=== PATIENT | female | born 1950 | race Caucasian/White ===

== ENCOUNTER 2017-02-12 15:45 | Emergency (ER) | payer MEDICARE, OTHER ==
[2017-02-12 14:52] LABS: URINE SOURCE CLEAN CATCH
[2017-02-12 14:59] LABS: URINE APPEARANCE SL HAZY; URINE BLOOD 1+ (NEG); URINE COLOR YELLOW; URINE GLUCOSE NORM (NORM); URINE KETONE NEG (NEG); URINE LEUKOCYTE ESTERASE NEG (NEG); URINE NITRATE NEG (NEG); URINE PROTEIN 1+ (NEG); URINE UROBILINOGEN NORM (NORM)
[2017-02-12 15:02] LABS: URINE BILIRUBIN NEG (NEG)
[2017-02-12 15:06] LABS: CULTURE INDICATED? YES; URINE BACTERIA AUWI 1+ (NEGATIVE); URINE SQUAMOUS EPITHELIAL CELL OCCAS /[HPF]
[2017-02-12 15:28] LABS: BASOPHIL% 0.9 % (0-2.5); EOSINOPHIL% 0.3 % (0.0-7.0); HEMATOCRIT 37.7 % (35.0-45.0); HEMOGLOBIN 12.1 gm/dL (12.0-16.0); LYMPHOCYTE# 0.6 X10e3 (1.0-3.5); LYMPHOCYTE% 12.1 % (17.0-45.0); MEAN CELL VOLUME 83.4 FL (83-96); MEAN CORPUSCULAR HEMOGLOBIN 26.8 PG (28-34); MEAN CORPUSCULAR HGB CONC 32.2 g/dL (30-36); MEAN PLATELET VOLUME 9.2 FL (6.5-11.5); MONOCYTE# 0.4 X10e3 (0-1.0); MONOCYTE% 9.5 % (3.0-12.0); NEUTROPHIL# 3.5 X10e3 (1.5-7.1); NEUTROPHIL% 77.2 % (40-75); RED BLOOD COUNT 4.52 X10e (3.90-5.30); RED CELL DISTRIBUTION WIDTH 19.8 % (11.0-15.5); WHITE BLOOD COUNT 4.6 X10e3 (4.0-10.5)
[2017-02-12 15:35] LABS: DIFF IND YES; PLATELET COUNT 45 X10e3 (140-420)
[2017-02-12 15:39] LABS: PLATELET ESTIMATE DECREASED (NORMAL); RBC NORMAL YES
[2017-02-12 15:43] LABS: ALBUMIN SERUM 3.6 g/dL (3.5-5.0); BILIRUBIN, DIRECT 0.3 mg/dL (0.0-0.2); BILIRUBIN,INDIRECT 1.1 mg/dL (0.0-0.9); BILIRUBIN,TOTAL 1.4 mg/dL (0.2-2.0); BUN/CREATININE RATIO 11.81; CALCIUM SERUM 8.9 mg/dL (8.4-10.2); CREATININE SERUM 1.1 mg/dL (0.6-1.4); GLOM FILT RATE Estimated 52.3 mL/min (>60); POTASSIUM 3.9 mmol/L (3.5-5.1); PROTEIN TOTAL SERUM 7.1 g/dL (6.0-8.3)
[~2017-02-12 15:45] MED LIST: ALB/IPRATROPIUM/1 E1 INH; ALDACTONE100 MG PO; AMITRYPTYLINE PO; BENTYL20 MG PO; CIPRO PO; CITRATE OF MAG300 ML PO; COMBIVENT U/D3 M2 INH; DICYCLOMINE HCL20 MG PO; DULCOLAX10 MG/SUPP RC; FLAGYL250 M1 PO; FLEXERIL PO; FLOMAX0.4 M1 PO; FUROSEMIDE40 MG PO; GABAPENTIN300 MG PO; HARVONI PO; HEMOCYTE324 MG PO; KLONOPIN1 M1 PO; KLONOPIN1 MG PO; KLONOPIN2 MG PO; LASIX PO; LORTAB 5/500 TA1 TA1 PO; MIRALAX17 G1 PO; NEURONTIN100 MG PO; NEURONTIN300 MG PO; OPANA10 MG PO; OXYCODONE HCL10 MG PO; PAXIL; PERCOCET 10/3251 TAB PO; PERCOCET 5-3251 TAB PO; PERCOCET 7.5-31 EACH PO; PERCOCET10 PO; PHENERGAN25 MG PO; PROTONIX PO; PROTONIX20 MG PO; SPIRONOLACTONE100 MG PO; SPIRONOLACTONE50 MG PO; ZOFRAN PO
== END 2017-02-12 17:04 | disposition home or self-care (01) ==
LOC: CED 15:45
DX: R11.2 Nausea with vomiting, unspecified (principal); R19.7 Diarrhea, unspecified; Z86.19 Personal history of other infectious and parasitic diseases; Z90.710 Acquired absence of both cervix and uterus; Z98.51 Tubal ligation status; F17.210 Nicotine dependence, cigarettes, uncomplicated; Z79.899 Other long term (current) drug therapy
CPT/HCPCS: 36415; 80048; 80076; 81003; 83690; 85025; 87086; 87088; 87186; 96374; 96375; 99284; C9113; J2405

== ENCOUNTER 2017-03-21 22:52 | Inpatient (IN) | payer MEDICARE, OTHER ==
--- NOTE | ~2017-03-21 | CO ---
Unit #: [id number] #: [id number] Patient: KING MURPHY [id number] [address] [place], [place] [address] [id number] I MR#: [id number] NAME: KING MURPHY ROOM: 302 Age: 67 Sex: F Admission Date: 03/22/2017 : 1950 Attending Physician: Maciej Denis M.D. Primary Care Physician: Christian Reina M.D. CONSULTATION REPORT CHIEF COMPLAINT Alcohol abuse, hepatitis C, cirrhosis of the liver, pancytopenia, hepatic encephalopathy, confusion unknown if due to high level of ammonia came with upper GI bleed. HISTORY OF PRESENT ILLNESS This is a 67-year-old female who in the past had a low platelet count. She had extensive workup. Finally, patient was diagnosed cirrhosis of the liver because she presented with ascites. She also has hepatitis C. Now she has on and off hepatic encephalopathy. Taking lactulose. Recently she received Sovaldi for hepatitis C. She follows with Dr. Gomez. Recently she was confused, admitted, found to have a high ammonia level and received lactulose and all improved. INTERIM HISTORY She has some family issue. She became upset. Started drinking beer heavily. Patient came with nausea, vomiting, mild upper GI bleed. Patient has an EGD that is normal. Her CBC on admission showed WBC 3.8, hemoglobin 8.4, MCV 83, and platelets of 44. Her transferrin situation is 6%. B12 normal. At present, she is comfortable. Worried about ascites. REVIEW OF SYSTEMS CONSTITUTIONAL: No fever, no chills, no sweats, no weight loss. EYES: No visual symptoms. EARS, NOSE AND THROAT: There is no runny nose or sore throat or difficulty hearing. CARDIOVASCULAR: No chest pain. No shortness of breath. No palpitations. No orthopnea. No PND. RESPIRATORY: No cough. No wheezing. No hemoptysis. GASTROINTESTINAL: As mentioned above. GENITOURINARY: No urinary frequency, hesitancy or urgency. No blood in the urine. MUSCULOSKELETAL: No muscle or joint pain. NEUROLOGIC: No headache. No numbness or tingling. No weakness. No seizure. PSYCHIATRIC: No anxiety, depression or mood disturbance. ENDOCRINE: No excessive urination or thirst. DERMATOLOGIC: No rash or change in the skin. ALLERGIC/IMMUNOLOGIC: No symptoms. HEMATOLOGIC/LYMPHATIC: Denies any symptoms. Unit #: [id number] #: [id number] Patient: KING MURPHY PAST MEDICAL HISTORY 1. Alcohol abuse. 2. Hepatitis C. 3. Cirrhosis of the liver. 4. Received Sovaldi for hepatitis C. 5. Leukopenia. 6. Thrombocytopenia. 7. Anemia. PAST SURGICAL HISTORY None. CURRENT MEDICATIONS Include: 1. Lactulose. 2. Folic acid. 3. Ferrous gluconate. 4. Aldactone. 5. Rocephin. ALLERGIES None. SOCIAL HISTORY The patient has been smoking one pack per day for 40 years. She used to drink heavily, quit. FAMILY HISTORY Positive for hypertension. PHYSICAL EXAMINATION GENERAL: Patient is comfortable. ECOG is 0. The patient is pleasant. VITAL SIGNS: Afebrile, O2 saturation 2 liters 93%, pulse 91, respiratory rate 18, blood pressure 105/65. HEENT: Moist mucosa. Pupils equally reactive to light. Extraocular muscles intact. Sclerae anicteric. No obvious bleeding from nasal mucosa or oral mucosa. Scalp normal. Hearing normal. NECK: No JVD. No lymphadenopathy. LYMPHATIC/HEMATOLOGIC: There is no palpable adenopathy in the neck, axilla or inguinal area. CARDIOVASCULAR: S1, S2. Regular rate and rhythm. No S3 or S4. RESPIRATORY: Chest symmetrical, normal. Clear to auscultation bilaterally. No wheezes, no rales, no rhonchi. No dullness to percussion. ABDOMEN/GASTROINTESTINAL: Abdomen is soft, nontender, nondistended. No hepatosplenomegaly. EXTREMITIES: There is no clubbing, no cyanosis, no edema. No varicose veins. NEUROLOGICAL: Patient is alert, awake and oriented x3. Cranial nerves II-XII are intact. Sensory grossly intact. Motor is 4/5 in all four extremities. Gait is normal. Station is normal. Language is normal. Memory is normal. DTRs +2 in all four extremities. MUSCULOSKELETAL: No joint swelling. No bony tenderness. No muscle tenderness. SKIN: No petechiae, no rash, no ecchymosis. PSYCHIATRIC: No anxiety. No delusions or hallucinations. There is no agitation. Eye contact is normal. Affect is appropriate. There is no flight of ideas. Unit #: [id number] #: [id number] Patient: KING MURPHY DIAGNOSTIC STUDIES LABORATORY: As mentioned above. IMAGING: CT abdomen and pelvis, on 03/22/2017, shows cirrhosis and splenomegaly; right pleural effusion; ascites. ASSESSMENT AND PLAN This is a 67-year-old female with the following active issues: 1. Pancytopenia. Her leukopenia and her thrombocytopenia are due to sequestration of WBC and platelets in the liver . She has advanced cirrhosis of the liver. 2. Anemia. Due to GI bleed. I will give her intravenous and folic acid. 3. Hepatic encephalopathy. Recently, she was confused, wandering on the street. I saw her in the clinic. I gave her a prescription for lactulose 30 mL p.o. q.8 h. p.r.n. she is taking. 4. Alcohol abuse. The patient has a significant history of alcohol. She drinks a lot of beer. She became symptomatic and came to the hospital. Encouraged her to quit drinking. I will follow the patient in the clinic. Dictated by... Anselmo Car M.D. HAYDEE/nicholas TD: 03/24/2017 16:40 JOB #: [id number] CONSULTATION REPORT Page 1 of 1 X Anselmo Car MD CONSULTATION REPORT
--- NOTE | ~2017-03-21 | HP ---
Unit #: [id number] #: [id number] Patient: KING MURPHY [id number] [address] [place], [place] [address] [id number] I MR#: [id number] NAME: KING MURPHY ROOM: 302 Age: 67 Sex: F Admission Date: 03/22/2017 : 1950 Attending Physician: Maciej Denis M.D. Primary Care Physician: Christian Reina M.D. HISTORY AND PHYSICAL CHIEF COMPLAINT 1. Nausea, vomiting and some hematemesis. 2. Urinary frequency. HISTORY OF PRESENT ILLNESS 67-year-old female with a history of hepatitis C and alcohol cirrhosis who recently had a binge episode of alcohol and resultant hematemesis. She was hemodynamically stable. She was seen by GI today. She has had a scope and EGD showed esophageal varices but no active bleeding. REVIEW OF SYSTEMS No chest pain, headaches, (1) or difficulty breathing. No constipation or diarrhea at this time. PAST MEDICAL HISTORY 1. Hepatitis C. 2. Alcohol abuse. 3. Cirrhosis. 4. Chronic back pain. 5. Anxiety/depression. 6. Chronic anemia. 7. Chronic thrombocytopenia. PAST SURGICAL HISTORY 1. Hysterectomy. 2. Hand surgery. 3. Tubal ligation. 4. . 5. EGD and colonoscopy. Most recent EGD was done today, 03/22/17, which showed esophageal varices. SOCIAL HISTORY She smokes. She used to drink alcohol heavily, recently restarted. CODE STATUS Full code. FAMILY HISTORY Myocardial infarction in her dad in his 50s. ALLERGIES No known drug allergies. Unit #: [id number] #: [id number] Patient: KING MURPHY HOME MEDICATIONS Include: 1. Oxycodone 10 mg every six hours. 2. Spironolactone 10 mg every morning. 3. Amitriptyline 10 mg at bedtime. 4. Klonopin 1 mg p.o. t.i.d. 5. Lasix 40 mg in the morning. 6. Iron/ferrous sulfate 324 mg p.o. daily. REVIEW OF SYSTEMS Complete ten point review of systems has been done and pertinent positives noted above. PHYSICAL EXAMINATION GENERAL APPEARANCE: She was comfortable, not in distress. VITAL SIGNS: Blood pressure 129/72, pulse 88, respiratory rate 16, temperature 98.6. HEENT: Pupils were equal, round, reactive to light and accommodation. CHEST: Mostly clear. ABDOMEN: Full, moved with respiration. Soft, nontender. EXTREMITIES: No edema. SKIN: Warm and dry with no rashes. LYMPHATIC SYSTEM: No enlarged peripheral lymphadenopathy that I could appreciate. DIAGNOSTIC STUDIES LABORATORY: She had a urinalysis which showed positive nitrites, 1+ leukocyte esterase, positive bowel, 10-25 WBCs. She had a CBC - WBC 15.2, hemoglobin and hematocrit 10.3 and 31.6. She had chemistries - glucose of 123, BUN and creatinine 20 and 1.0, sodium and potassium 135 and 3.6. Bilirubin total was 2.4 and elevated. ASSESSMENT AND PLAN 1. Urinary tract infection: Culture is pending. Would start patient on Rocephin 1 g IV daily if not started already and I will await urine culture. 2. Upper gastrointestinal bleed/hematemesis, probably secondary to esophageal varices: No active bleed at this time. She is stable for discharge per GI standpoint. Will just keep her on that and repeat a CBC and BMP in the morning. 3. Vomiting: This is resolved. At this time, will put her on some Zofran should this be the case. 4. Chronic pain: Will continue pain medication. DISPOSITION Will discharge patient in the morning. Dictated by Cristina Murphy/sebastian TD: 03/22/2017 12:00 Unit #: [id number] #: [id number] Patient: KING MURPHY JOB #: [id number] HISTORY AND PHYSICAL Page 1 of 1 X Maciej Denis MD HISTORY AND PHYSICAL
--- NOTE | ~2017-03-21 | OR ---
Unit #: [id number] #: [id number] Patient: KING MURPHY [id number] [id number] [facility]. [place], [place] [address] [id number] I MR#: [id number] NAME: KING MURPHY ROOM: 302 Date of Procedure: 03/22/2017 Admission Date: 03/22/2017 Surgeon: Magan Marx M.D. : 1950 Attending Physician: Maciej Denis M.D. Primary Care Physician: Christian Reina M.D. OPERATIVE REPORT PRIMARY CARE PHYSICIAN Christian Reina M.D. PREOPERATIVE DIAGNOSES Cirrhosis from hepatitis C and alcohol. The patient has come for upper gastrointestinal bleed with hematemesis. PROCEDURE PERFORMED Upper gastrointestinal endoscopy. POSTOPERATIVE DIAGNOSES 1. Early straight distal esophageal varices without any stigmata of recent bleed. 2. Portal hypertensive gastropathy of moderate severity. 3. Rest of the examination up to third part of duodenum was normal. No active bleeding nor any blood or blood residue was seen in the upper gastrointestinal tract. RECOMMENDATIONS 1. Start on regular diet. 2. The patient can be discharged home from GI standpoint. Also, can discontinue IV Protonix. SEDATION USED MAC. DESCRIPTION OF PROCEDURE Following detailed explanation of the potential risks and complications of an upper endoscopy, namely perforation, bleeding, and complications related to sedation, the patient was brought to GI lab and laid in the left lateral decubitus position. Lubricated tip of the Olympus video upper endoscope was passed through the bite block into the proximal esophagus. The upper GI scope was passed in the proximal esophagus. The entire esophageal mucosa was examined and the patient was noted to have early distal esophageal varices without any stigmata of recent bleed. The scope was then advanced into the gastric cavity and the latter was insufflated. Mucosa of the fundus, body, and antrum was examined and changes of portal hypertensive gastropathy were noted. Pylorus was intubated with visualization of the normal duodenal bulb and second and third part of the duodenum. Upon withdrawal and retroflexion, incisura, cardia, and greater curve was examined and no additional findings were noted. The scope was then withdrawn in the distal esophagus. The entire Unit #: [id number] #: [id number] Patient: MURPHY,KING esophageal mucosa was examined all the way up to pharynx. No additional findings were noted. The patient tolerated the procedure without any postprocedure complications. Dictated by... Cristina Ambrose/catherine TD: 03/22/2017 22:29 JOB #: [id number] Andrez Burch M.D. OPERATIVE REPORT Page 1 of 1 X Magan Marx MD X PROCEDURE OPERATIVE NOTE
--- NOTE | ~2017-03-21 | DS ---
Unit #: [id number] #: [id number] Patient: KING MURPHY [id number] [id number] [facility]. [place], [place] [address] [id number] I MR#: [id number] NAME: KING MURPHY ROOM: 302 Age: 67 Sex: F Admission Date: 03/22/2017 : 1950 Discharge Date: 03/24/2017 Attending Physician: Maciej Denis M.D. Primary Care Physician: Christian Reina M.D. DISCHARGE SUMMARY CONSULTANTS 1. Anselmo Car M.D. 2. Magan Marx M.D. PROCEDURE EGD. ADMITTING DIAGNOSES 1. Nausea. 2. Vomiting. 3. Hematemesis. FURTHER DIAGNOSES 1. Possible upper gastrointestinal bleed. 2. History of hepatitis C. 3. History of cirrhosis, secondary to alcohol/hepatitis C. 4. Urinary tract infection and sepsis with Escherichia coli. HISTORY OF PRESENTING ILLNESS The patient is a 67-year-old lady with a past medical history of hepatitis C, history of cirrhosis, history of alcoholism who had a binge of alcohol. Presented to the emergency room with hematemesis on March 22, 2017. HOSPITAL COURSE In the hospital course, she was seen by Dr. Marx and Dr. Car. She had an EGD done. The EGD showed early straight distal esophageal varices without any stigmata of recent bleed. Portal hypertensive gastropathy of moderate severity and the rest of the examination up to the third part of the duodenum was normal. We counseled her to quit drinking alcohol. She is doing clinically better. She did receive IV infusion today. Will discharge her. She wants to go home. Will discharge her home. Will request her to follow with her primary care in one to two weeks. PHYSICAL EXAMINATION On the day of the discharge, her physical examination: VITAL SIGNS: Temperature 98.4, pulse rate 86, respirations 18, blood pressure 105/57. GENERAL: Patient is alert, oriented x3, lying in the bed. No acute distress. HEENT: Normocephalic and atraumatic. No icterus. PERRLA. Extraocular muscles intact. NECK: Supple. No JVD. HEART: S1, S2. Regular rate and rhythm. Unit #: [id number] #: [id number] Patient: KING MURPHY CHEST: Bilaterally equal air entry. Clear to auscultation. ABDOMEN: Soft, nontender. EXTREMITIES: no edema. Normal pulses. DISCHARGE INSTRUCTIONS 1. Try to stay away from alcohol. 2. Follow with her primary care in one to two weeks. DISCHARGE MEDICATIONS 1. Amitriptyline 10 mg at bedtime. 2. Klonopin 1 mg p.o. three times a day. 3. Folic acid 1 mg p.o. daily. Kindly note, folic acid is sold over the counter. 4. Ferrous gluconate 324 mg p.o. daily. 5. Oxycodone 10 mg p.o. q.6 p.r.n. 6. She mentions she does have pain medications at home. We are not giving any narcotic prescriptions. 7. Aldactone 100 mg in the morning. 8. Protonix 40 mg p.o. twice a day. 9. Omnicef 300 mg p.o. twice a day for five days. All the discharge instructions were explained in detail to the patient. Total time spent in her care, 35 minutes. Dictated by... Hao Almendarez M.D. Jostin TD: 03/24/2017 17:11 JOB #: [id number] DISCHARGE SUMMARY Page 1 of 1 X X DISCHARGE SUMMARY
--- NOTE | ~2017-03-21 | CO ---
Unit #: [id number] #: [id number] Patient: KING MURPHY [id number] [facility]. [place], [place] [address] [id number] I MR#: [id number] NAME: KING MURPHY ROOM: 302 Age: 67 Sex: F Admission Date: 03/22/2017 : 1950 Attending Physician: Maciej Denis M.D. Primary Care Physician: Christian Reina M.D. Consultation Date: 03/22/2017 CONSULTATION REPORT PRIMARY CARE PHYSICIAN Christian Reina M.D. REASON FOR CONSULTATION Upper GI bleed. HISTORY OF PRESENT ILLNESS Ms. Murphy is a 67-year-old white female lives at home by herself. She apparently had a row with her daughter and said she started binge drinking. Subsequently, she vomited and had wes hematemesis. She said she had substantial amount of blood when she vomited. She has a past medical history of hepatitis C and alcohol related cirrhosis with portal hypertension, but has no documented esophageal varices. In fact, she has been seen with similar symptoms in the past. PAST MEDICAL HISTORY Significant for history of alcohol abuse. She has been sober for years, but then started binge drinking. Also, history of hepatitis C related cirrhosis, history of chronic back pain, anxiety, depression, anemia, thrombocytopenia, ITP, chronic back pain, on opiates. PAST SURGICAL HISTORY Included hysterectomy, tubal ligation, hand surgery, section. SOCIAL HISTORY The patient does smoke a pack, used to be a heavy smoker until recently and does drink alcohol. Lives with her son. FAMILY HISTORY Significant for premature NH in father at age 50. ALLERGIES No known drug allergies. MEDICATIONS At home included the following; oxycodone, spironolactone, amitriptyline, Klonopin, Lasix, Hemocyte. REVIEW OF SYSTEMS Detailed review of organ systems does not reveal any recent fever, chills, or rigors. No history of headache, seizures, chest pain, or syncope. No history of cough, expectoration, or hemoptysis. No history of melena. The patient does mention history of hematemesis. No history of dysuria, hematuria, or pyuria. No history of focal seizures or extremity weakness. Unit #: [id number] #: [id number] Patient: KING MURPHY No history of skin rash, aphthous ulcer in mouth, or reactive arthritis. PHYSICAL EXAMINATION GENERAL: She is alert and oriented, and appears comfortable. VITAL SIGNS: Stable with a temperature of 98.5, pulse is 100 per minute and regular, respiratory rate is 16, blood pressure is 129/69. She weighs 102 pounds. Baseline weight is about 120 pounds in the past. HEENT: She has no pallor, icterus, lymphadenopathy, or peripheral edema. CARDIOVASCULAR: Normal heart sounds. No murmurs on auscultation. LUNGS: Reveals normal breath sounds. Good air entry. ABDOMEN: Soft with mild distention. The patient may have mild ascites. Liver and spleen are not palpable. Bowel sounds normal. DIAGNOSTIC STUDIES LABORATORY RESULTS: Shows a hemoglobin of 12.1. Normal BUN and creatinine. INR of 1.5. Her total bilirubin is 2.4, most of which is direct. AST, ALT, and alkaline phosphatase are normal. The platelet count is 100 and white count is 15,000. The patient's urinalysis suggests urinary tract infection. CLINICAL IMPRESSION The patient with a history of upper gastrointestinal bleed, history of hepatitis C, and alcohol related cirrhosis. Hemodynamically stable. She also has urinary tract infection and will be started on Rocephin by Dr. Burch. MANAGEMENT PLAN We will proceed with an upper GI endoscopy as substantial upper gastrointestinal bleed is most likely etiology of presentation indeed Bonita-Cannon tear. The pros and cons of procedure and potential risks and complications were discussed with the patient and she was reassured. Thank you for asking me to see this pleasant patient. I appreciate the consult. Dictated by... Cristina Ambrose/catherine TD: 03/22/2017 22:17 JOB #: [id number] CC: Cristina Granados M.D. CONSULTATION REPORT Page 1 of 1 X Magan Marx MD X CONSULTATION REPORT
--- NOTE | ~2017-03-21 | CT4 ---
[facility] A Service of [facility] RADIOLOGY TEXT RESULTS PATIENT: KING MURPHY LOCATION: C3A 302-01 : [birth year] UNIT #: [id number] AGE: [address]: Maciej Denis MD SEX: F ORDER DR: [id number] [facility] [address] [place], [place] [address] [id number] I MR#: [id number] Acc #: [id number] NAME: KING MURPHY : 1950 SEX: F STUDY DATE/TIME: 03/22/2017 01:49 UNIT: C3A PCU ROOM: 302 STUDY DESCRIPTION: CT Abd and Pelv Wo Cont Attending Physician: Maciej Denis M.D. Ordering Physician: Igor Uribe D.O. Primary Care Physician: Christian Reina M.D. MEDICAL IMAGING REPORT This report is preliminary unless electronic signature is present EXAM Abdomen and pelvis CT 03/22/2017 01:49 INDICATION Nausea, vomiting, diarrhea and left side abdominal pain that started yesterday. History of cirrhosis. TECHNIQUE Axial images were obtained through the abdomen and pelvis without contrast. Multiplanar reformats were obtained. Comparison made 11/29/2016. This CT examination was performed with one or more of the following radiation dose reduction techniques: automatic exposure control, adjustment of mA and/or kV according to patient size, and iterative reconstruction. FINDINGS ABDOMEN: There is a new large right pleural effusion. There is compressive atelectasis in the right lung base. Left lung base is clear. Markedly cirrhotic liver is seen. The liver is shrunken since the previous study. Spleen remains enlarged with a craniocaudal ulbt-vm-rvnq length of 15 cm. No renal or ureteral stones are seen. There is no hydronephrosis. Hoziu-fe-vbmcflka volume of ascites is present. GI tract evaluation is limited without oral contrast. No bowel obstruction is seen. PELVIS: Small volume of ascites is noted. Urinary bladder is decompressed. Uterus is surgically absent. There are no lower ureteral stones. There may be some mild wall thickening in the cecum. This may simply be secondary to the patient's liver disease but could also reflect mild colitis. IMPRESSION 1. Cirrhosis and splenomegaly. The liver appears shrunken and may have shrunken somewhat since the prior study this year. [facility] A Service of [facility] RADIOLOGY TEXT RESULTS PATIENT: KING MURPHY LOCATION: [facility] 302- : 50 UNIT #: [id number] AGE: [address]: Maciej Denis MD SEX: F ORDER DR: 2. No renal or ureteral stones. No hydronephrosis. 3. New large right pleural effusion. 4. Increased volume of ascites in the abdomen and pelvis, now moderate. 5. No bowel obstruction is seen. There may be some wall thickening in the cecum. This may reflect true colitis but may also simply be secondary to the patient's liver disease. 6. Hysterectomy. Dictated by... Armando Booker Jr., M.D. THIS IS AN ELECTRONICALLY VERIFIED REPORT Armando Booker Jr., M.D. at 03/22/2017 9:13 PM RUBIA/hermelinda TD: 03/22/2017 10:22 JOB #: [id number] MEDICAL IMAGING REPORT Page 1 of 1 COPY
[2017-03-22 00:48] LABS: POC - CKMB <1.0 ng/mL (0.0-7.9); POC - TROPONIN <0.05 ng/mL (<=0.05)
[2017-03-22 00:52] LABS: URINE SOURCE CLEAN CATCH
[2017-03-22 00:54] LABS: BASOPHIL# 0.1 X10e3 (0-0.3); BASOPHIL% 0.4 % (0-2.5); EOSINOPHIL% 0.2 % (0.0-7.0); HEMATOCRIT 37.1 % (35.0-45.0); HEMOGLOBIN 12.1 gm/dL (12.0-16.0); LYMPHOCYTE# 0.9 X10e3 (1.0-3.5); LYMPHOCYTE% 5.9 % (17.0-45.0); MEAN CELL VOLUME 82.1 FL (83-96); MEAN CORPUSCULAR HEMOGLOBIN 26.8 PG (28-34); MEAN CORPUSCULAR HGB CONC 32.6 g/dL (30-36); MEAN PLATELET VOLUME 9.2 FL (6.5-11.5); MONOCYTE# 1.5 X10e3 (0-1.0); MONOCYTE% 9.7 % (3.0-12.0); NEUTROPHIL# 12.8 X10e3 (1.5-7.1); NEUTROPHIL% 83.8 % (40-75); PLATELET COUNT 100 X10e3 (140-420); RED BLOOD COUNT 4.52 X10e (3.90-5.30); RED CELL DISTRIBUTION WIDTH 19.7 % (11.0-15.5); WHITE BLOOD COUNT 15.2 X10e3 (4.0-10.5)
[2017-03-22 00:56] LABS: URINE APPEARANCE CLOUDY; URINE BLOOD 3+ (NEG); URINE COLOR ORANGE; URINE GLUCOSE NEG (NEG); URINE KETONE TRACE (NEG); URINE LEUKOCYTE ESTERASE 1+ (NEG); URINE NITRATE POS (NEG); URINE PROTEIN 1+ (NEG); URINE SPECIFIC GRAVITY 1.031 (1.003-1.035)
[2017-03-22 00:56] LABS: DIFF IND YES
[2017-03-22 00:58] LABS: CULTURE INDICATED? YES; URINE BACTERIA AUWI 1+ (NEGATIVE); URINE SQUAMOUS EPITHELIAL CELL MOD /[HPF]
[2017-03-22 01:00] LABS: INR 1.5; PARTIAL THROMBOPLASTIN TIME 27.6 SECONDS (23.5-31.3)
[2017-03-22 01:03] LABS: URINE BILIRUBIN POS (NEG)
[2017-03-22 01:08] LABS: PLATELET ESTIMATE DECREASED (NORMAL)
[2017-03-22 01:09] LABS: ALBUMIN SERUM 3.4 g/dL (3.5-5.0); ALKALINE PHOSPHATASE 74 U/L (32-92); ALT (SGPT) 14 U/L (10-40); ANISOCYTOSIS MOD; AST (SGOT) 22 U/L (10-42); BILIRUBIN, DIRECT 0.5 mg/dL (0.0-0.2); BILIRUBIN,INDIRECT 1.9 mg/dL (0.0-0.9); BILIRUBIN,TOTAL 2.4 mg/dL (0.2-2.0); BLOOD UREA NITROGEN 20 mg/dL (9-23); CALCIUM SERUM 8.6 mg/dL (8.4-10.2); CARBON DIOXIDE 24 mmol/L (22-31); CHLORIDE 100 mmol/L (100-111); GLOM FILT RATE Estimated 58.3 mL/min (>60); GLUCOSE FASTING 123 mg/dL (70-110); HYPOCHROMIA SL; LIPASE 15 U/L (22-51); OVALOCYTES PRESENT; POTASSIUM 3.6 mmol/L (3.5-5.1); PROTEIN TOTAL SERUM 6.6 g/dL (6.0-8.3); SODIUM 135 mmol/L (135-145)
[2017-03-22 01:20] LABS: ALCOHOL BLOOD <5 mg/dL (0)
[2017-03-22 08:01] LABS: HEMATOCRIT 31.6 % (35.0-45.0); HEMOGLOBIN 10.3 gm/dL (12.0-16.0)
[2017-03-22 12:07] LABS: HEMATOCRIT 30.5 % (35.0-45.0); HEMOGLOBIN 10.1 gm/dL (12.0-16.0)
[2017-03-22 18:09] LABS: HEMATOCRIT 27.2 % (35.0-45.0)
[2017-03-23 06:29] LABS: HEMATOCRIT 25.4 % (35.0-45.0); HEMOGLOBIN 8.4 gm/dL (12.0-16.0); MEAN CELL VOLUME 83.1 FL (83-96); MEAN CORPUSCULAR HEMOGLOBIN 27.4 PG (28-34); MEAN PLATELET VOLUME 9.1 FL (6.5-11.5); RED BLOOD COUNT 3.06 X10e (3.90-5.30); RED CELL DISTRIBUTION WIDTH 20.1 % (11.0-15.5)
[2017-03-23 06:30] LABS: WHITE BLOOD COUNT 3.8 X10e3 (4.0-10.5)
[2017-03-23 07:05] LABS: BUN/CREATININE RATIO 16.66; CALCIUM SERUM 8.3 mg/dL (8.4-10.2); CREATININE SERUM 0.9 mg/dL (0.6-1.4); GLOM FILT RATE Estimated 66.2 mL/min (>60); POTASSIUM 3.7 mmol/L (3.5-5.1)
[2017-03-23 08:13] LABS: HEMATOCRIT 26.3 % (35.0-45.0); HEMOGLOBIN 8.7 gm/dL (12.0-16.0); MEAN CELL VOLUME 83.7 FL (83-96); MEAN CORPUSCULAR HEMOGLOBIN 27.6 PG (28-34); MEAN PLATELET VOLUME 9.1 FL (6.5-11.5); RED BLOOD COUNT 3.14 X10e (3.90-5.30); RED CELL DISTRIBUTION WIDTH 20.3 % (11.0-15.5); WHITE BLOOD COUNT 3.8 X10e3 (4.0-10.5)
[2017-03-23 12:04] LABS: HEMATOCRIT 25.8 % (35.0-45.0); HEMOGLOBIN 8.5 gm/dL (12.0-16.0)
[2017-03-23 20:06] LABS: HEMATOCRIT 25.5 % (35.0-45.0); HEMOGLOBIN 8.3 gm/dL (12.0-16.0)
[2017-03-24 08:12] LABS: HEMATOCRIT 26.7 % (35.0-45.0); HEMOGLOBIN 8.7 gm/dL (12.0-16.0); MEAN CELL VOLUME 83.8 FL (83-96); MEAN CORPUSCULAR HEMOGLOBIN 27.3 PG (28-34); MEAN CORPUSCULAR HGB CONC 32.5 g/dL (30-36); MEAN PLATELET VOLUME 8.8 FL (6.5-11.5); RED BLOOD COUNT 3.19 X10e (3.90-5.30); RED CELL DISTRIBUTION WIDTH 19.7 % (11.0-15.5); WHITE BLOOD COUNT 3.8 X10e3 (4.0-10.5)
[2017-03-24 08:41] LABS: ALBUMIN SERUM 2.8 g/dL (3.5-5.0); BILIRUBIN,TOTAL 0.7 mg/dL (0.2-2.0); CALCIUM SERUM 8.1 mg/dL (8.4-10.2); CREATININE SERUM 0.9 mg/dL (0.6-1.4); GLOM FILT RATE Estimated 66.2 mL/min (>60); POTASSIUM 3.6 mmol/L (3.5-5.1); PROTEIN TOTAL SERUM 5.7 g/dL (6.0-8.3)
[2017-03-24 08:49] LABS: FERRITIN 24 ng/mL (11-307)
[2017-03-24] MEDS ORDERED: PROTONIX PO (15:12)
[2017-03-24] MEDS ORDERED: OMNICEF300 M1 PO (15:15)
[2017-03-24] MEDS ORDERED: ZOFRAN PO (15:17)
== END 2017-03-24 17:52 | disposition home health service (06) | DRG 377 ==
LOC: CED 22:52 → CEDOF 03-22 03:50 → CED 03-22 04:15 → CEDOF 03-22 04:15 → C3A PCU 03-22 06:17 → CEDOF 03-22 06:17 → C3A PCU 03-22 07:35
PROVIDERS: Emergency Medicine; Family Medicine; Internal Medicine; Internal Medicine Gastroenterology
PROC: 0DJ08ZZ Inspection of Upper Intestinal Tract, Via Natural or Artificial Opening Endoscopic (ICD-10-PCS; principal; 2017-03-22 09:15)
DX: K92.0 Hematemesis (principal); A41.51 Sepsis due to Escherichia coli [E. coli]; D61.818 Other pancytopenia; N39.0 Urinary tract infection, site not specified; K76.6 Portal hypertension; F10.10 Alcohol abuse, uncomplicated; B19.20 Unspecified viral hepatitis C without hepatic coma; K70.30 Alcoholic cirrhosis of liver without ascites; I85.10 Secondary esophageal varices without bleeding; B96.20 Unspecified Escherichia coli [E. coli] as the cause of diseases classified elsewhere; K31.89 Other diseases of stomach and duodenum; G89.29 Other chronic pain; M54.9 Dorsalgia, unspecified; F41.9 Anxiety disorder, unspecified; F32.9 Major depressive disorder, single episode, unspecified; F17.210 Nicotine dependence, cigarettes, uncomplicated; K72.90 Hepatic failure, unspecified without coma; Z82.49 Family history of ischemic heart disease and other diseases of the circulatory system; Z90.710 Acquired absence of both cervix and uterus; Z98.51 Tubal ligation status
CPT/HCPCS: 36415; 74176; 80048; 80053; 80076; 81003; 82140; 82553; 82607; 82728; 83540; 83550; 83690; 84484; 85014; 85018; 85025; 85027; 85610; 85730; 86850; 86900; 86901; 87086; 87088; 87186; 96374; 96375; 99285; C9113; G0480; J0696; J2270; J2405; J2916

== ENCOUNTER → 2017-07-07 | Outpatient (CLI) | payer MEDICARE, OTHER ==
[~2017-07-07] MED LIST changes: +OMNICEF300 M1 PO
--- NOTE | ~2017-07-07 | BD1 ---
[facility] RADIOLOGY TEXT RESULTS PATIENT: KING MURPHY LOCATION: [facility] : 50 UNIT #: [id number] AGE: [address]: Christian Reina MD SEX: F ORDER DR: [id number] [facility] [address] [place], [place] [address] [id number] O MR#: [id number] Acc #: [id number] NAME: KING MURPHY : 1950 SEX: F STUDY DATE/TIME: 07/07/2017 15:10 UNIT: [facility] ROOM: STUDY DESCRIPTION: BD Dexa Bone Dens 1+ Site Attending Physician: Christian Reina M.D. Referring Physician: Christian Reina M.D. Ordering Physician: Christian Reina M.D. Primary Care Physician: Christian Reina M.D. MEDICAL IMAGING REPORT This report is preliminary unless electronic signature is present EXAM DXA scan 07/07/2017 HISTORY Status post menopause with no hormone replacement therapy. Osteopenia. Smoking history for 50 years. FINDINGS Bone mineral density in the lumbar spine from L1-L4 is 0.698 g/cm2 which is 3.2 standard deviations below the mean when compared to the young adult reference population which is characteristic of osteoporosis. This is 1.3 standard deviations below the mean when compared to the age-matched population. Bone mineral density in the left femoral neck was 0.523 g/cm2 which is 2.9 standard deviations below the mean when compared to the young adult reference population which is characteristic of osteoporosis. This is 1.3 standard deviations below the mean when compared to the age-matched population. IMPRESSION Bone mineral density in the lumbar spine and left hip characteristic of osteoporosis. Dictated by... Donnell Arcos M.D. THIS IS AN ELECTRONICALLY VERIFIED REPORT Donnell Arcos M.D. at 07/08/2017 7:18 AM ROSIE/alexandre TD: 07/07/2017 23:30 JOB #: [id number] [facility] Service of [facility] RADIOLOGY TEXT RESULTS PATIENT: KING MURPHY LOCATION: [facility] #: [id number] : [birth year] UNIT #: [id number] AGE: [address]: hCristian Reina MD SEX: F ORDER DR: MEDICAL IMAGING REPORT Page 1 of 1 COPY
== END | disposition home or self-care (01) ==
LOC: CWCC 14:30
DX: Z13.820 Encounter for screening for osteoporosis (principal); Z78.0 Asymptomatic menopausal state
CPT/HCPCS: 77080